=== PATIENT | female | born 1950 | race Caucasian/White ===

== ENCOUNTER 2017-11-16 18:21 | Inpatient (IN) | payer OTHER, MEDICARE ==
[~2017-11-16] VITALS: Ht 167.6 cm; Wt 90.7 kg
--- NOTE | 2017-11-16 20:52 | ED GENERAL ADULT ---
See Addendum History of Present Illness General Chief Complaint: Lower Extremity Problems Stated Complaint: CANT FEEL LT LEG FROM KNEE DOWN Source: patient Exam Limitations: no limitations Allergies Coded Allergies: codeine (NAUSEA/VOMITING 11/16/17) Reconcile Medications Alprazolam 0.5 MG TABLET 1 TAB PO TID ANXIETY (Reported) Alprazolam 0.5 MG TABLET 2 TAB PO QHS ANXIETY (Reported) Ascorbic Acid/Collagen Hydr (Collagen Plus Vit C Capsule) (Unknown Strength) CAPSULE (Unknown Dose) PO DAILY SUPPLEMENT (Reported) Calcium (Elemental-Fr Calcarb) (Calcium) (Unknown Strength) TABLET (Unknown Dose) PO DAILY SUPPLEMENT (Reported) Furosemide 20 MG TABLET 1 TAB PO DAILY DIURETIC (Reported) Gabapentin 300 MG CAPSULE 1 CAP PO TID MOOD/NERVE (Reported) Linaclotide (Linzess) 72 MCG CAPSULE 1 CAP PO DAILY IBS (Reported) Magnesium Oxide (Magnesium) (Unknown Strength) CAPSULE (Unknown Dose) PO DAILY SUPPLEMENT (Reported) Multiple Vitamin (Multivitamins) 1 EACH TABLET 1 TAB PO DAILY SUPPLEMENT ( Reported) Nortriptyline HCl 75 MG CAPSULE 3 CAP PO QPM SLEEP/ANXIETY (Reported) Simvastatin (Simvastatin*) 20 MG TABLET 1 TAB PO QPM CHOLESTEROL (Reported) Topiramate 100 MG TABLET 1 TAB PO QPM SLEEP/ANXIETY (Reported) Triage Note: PT TO ED FOR C/C NUMBNESS AND WEAKNESS TO L LOWER LEG ONLY BELOW KNEE X 1 WEEK. PT ALSO REPORTS HEADACHE X 2 WEEKS BUT THINKS IT'S RELATED TO A COLD. PT'S L LEG WEAKER WITH SLIGHTLY LESS MOVEMENT IN THE TOES. EXTREMITIES COLD BILATERALLY. DENIES PAIN. Triage Nurses Notes Reviewed? yes Onset: Gradual Duration: week(s): (2), constant, continues in ED Timing: single episode today Injury Environment: home Severity: moderate, severe Severity Numbers: 6 No Modifying Factors: none LMP (ages 10-50): unknown : No Patient currently breastfeeds: No HPI: 67-year-old female past medical history of obesity, hyperlipidemia, pituitary adenoma, anxiety and IBS present for evaluation of left lower extremity weakness and numbness along with headache. Patient states that symptoms started about 2 weeks ago after mother . The pain is located in the front of her head and described as pressure that is intermittent and sharp. She denies any head trauma. The weakness also started 2 weeks ago and has been persistent. She states it has been difficult for her to ambulate. She states that earlier today she was sitting on the toilet attempting to get up and because of the weakness in her left lower extremity she felt her knees and was unable to get up so her brought her to the emergency department. She denies any chest pain shortness of breath dizziness lightheadedness changes in vision or vomiting. She does not take blood thinners. She adamantly denies head trauma or alcohol use. No drug use. She does report subjective fevers over the past 2 weeks as well. She's been taking Advil for her symptoms without much improvement. No other weakness or numbness. No back pain. (Austin Barrera) Vital Signs & Intake/Output Vital Signs & Intake/Output Vital Signs Date Time Temp Pulse Resp B/P B/P Pulse O2 O2 Flow FiO2 Mean Ox Delivery Rate 11/16 2200 98.8 108 22 139/69 97 Room Air 11/16 1828 96.5 109 15 144/92 98 Room Air Room Air (Omari LISA,David Lopez) Past History Travel History Traveled to [place] past 21 day No Medical History Any Pertinent Medical History? see below for history Cardiovascular: hyperlipidemia, FLUID RETENTION Gastrointestinal: IBS-C Psychiatric: anxiety Blood Disorders: NONE Cancer(s): UTERINE CA Surgical History Surgical History: PITUITARY ADENOMA RESECTION Psychosocial History What is your primary language Turkish Tobacco Use: Quit >30 days ago ETOH Use: denies use Illicit Drug Use: denies illicit drug use Family History Hx Contributory? No (Austin Barrera) Review of Systems Review of Systems Constitutional: Reports: no symptoms. EENTM: Reports: no symptoms. Respiratory: Reports: no symptoms. Cardiovascular: Reports: no symptoms. GI: Reports: no symptoms. Genitourinary: Reports: no symptoms. Musculoskeletal: Reports: no symptoms. Skin: Reports: no symptoms. Neurological/Psychological: Reports: see HPI, headache, numbness, tingling. Hematologic/Endocrine: Reports: no symptoms. Immunologic/Allergic: Reports: no symptoms. All Other Systems: Reviewed and Negative (Austin Barrera) Physical Exam Physical Exam General Appearance: well developed/nourished, no apparent distress, alert, awake , obese Head: atraumatic, normal appearance, NO GAMBLE SIGNS OR RACCOON EYES. nO SIGNS OF TRAUMA. nO HEMATOMAS LACERATIONS OR ABRASIONS Eyes: Bilateral: normal appearance, PERRL, EOMI. Ears, Nose, Throat: normal pharynx, normal ENT inspection, hearing grossly normal Neck: normal inspection, supple, full range of motion, no midline tenderness Respiratory: normal breath sounds, chest non-tender, no respiratory distress, lungs clear Cardiovascular: regular rate/rhythm, normal peripheral pulses Peripheral Pulses: 2+ radial (R), 2+ radial (L) Gastrointestinal: soft, non-tender Back: normal inspection, normal range of motion, no vertebral tenderness Extremities: normal inspection, STRENGTH IN THE LEFT LOWER EXTREMITY IS 4 OUT OF 5 COMPARED TO 5 OUT OF 5 IN OTHER EXTREMITIES. sHARP DULL DIFFERENTIATION IS INTACT IN THE LEFT LOWER EXTREMITY. sOFT TOUCH SENSATION IS ABSENT IN THE FOOT/ DISTAL TOES Neurologic/Psych: no motor/sensory deficits, awake, alert, oriented x 3, abnormal gait, UNSTEADY GAIT. lEFT LOWER EXTREMITY WEAK. sHE IS ABLE TO STAND STRAIGHT AND NOT MOVE BUT SOON PATIENT ATTEMPTS TO AMBULATE SHE BECOMES UNSTEADY Skin: intact, normal color, warm/dry Lymphatic: no anterior cervical fabrice Core Measures ACS in differential dx? No CVA/TIA Diagnosis: No Sepsis Present: No Sepsis Focused Exam Completed? No (Shaji RAMIREZ,Austin) Progress Differential Diagnoses I considered the following diagnoses in my evaluation of the patient: [CVA, TIA, diabetic neuropathy, intracranial hemorrhage, intracranial mass, electrolyte abnormality, sciatica, peripheral vascular disease] Plan of Care: Orders Procedure Date/time Status LACTIC ACID 11/16 2352 Active Patient Data 11/16 2319 Active Admit to inpatient 11/16 2305 Active Add-on Test (ER Only) 11/16 2144 Active TYPE & SCREEN (NOT X-MATCH) 11/16 2141 Complete RAPID VIRAL INFLUENZA A 11/16 2051 Complete BLOOD CULTURE 11/16 2051 Active URINALYSIS 11/16 2051 Active TROPONIN LEVEL 11/16 2051 Complete PARTIAL THROMBOPLASTIN TIME 11/16 2051 Complete PROTHROMBIN TIME 11/16 2051 Complete MAGNESIUM 11/16 2051 Complete LACTIC ACID 11/16 2051 Complete COMPREHENSIVE METABOLIC PANEL 11/16 2051 Complete CBC WITHOUT DIFFERENTIAL 11/16 2051 Complete B-TYPE NATRIURETIC PEP (BNP) 11/16 2051 Complete EKG 11/16 2043 Active Laboratory Tests 11/16/172141: Anion Gap 21 H, Estimated GFR 56 L, BUN/Creatinine Ratio 14.0, Glucose 117 H, Lactic Acid 2.1, Calcium 10.3 H, Magnesium 1.8, Total Bilirubin 0.6, AST 48 H, ALT 89 H, Alkaline Phosphatase 127 H, Troponin I < 0.01, Iow-R-Knpcmufdqdb Pept 14.8, Total Protein 8.8 H, Albumin 5.2 H, Globulin 3.6, Albumin/Globulin Ratio 1.4, PT 11.6, INR 1.11, APTT 25, CBC w Diff NO MAN DIFF REQ, RBC 4.75, MCV 92.7, MCH 31.0, MCHC 33.4, RDW 13.3, MPV 7.9, Gran % 67.0, Lymphocytes % 25.8, Monocytes % 6.6, Eosinophils % 0.4, Basophils % 0.2, Absolute Granulocytes 7.6 H, Absolute Lymphocytes 2.9, Absolute Monocytes 0.8 H, Absolute Eosinophils 0.1 , Absolute Basophils 0 Microbiology 11/16 2300 NASOPHARYN: Influenza Virus A & B Rapid Smear - COMP 11/16 2244 BLOOD: Blood Culture - RECD 11/16 2212 BLOOD: Blood Culture - RECD Patient seen and evaluated. Her left lower extremity is weak compared to the right. Her sensation to soft touch is absent in the distal left lower extremity. She has an unsteady gait. Cerebellar testing is intact. Patient is moving all other extremities equally. Cranial nerve testing intact. CT scan shows a subacute/acute on chronic subdural hematoma. Patient denies head trauma. Spoke with neurosurgery and they do not feel like she needs to go the OR immediately and does not need to be transferred. Patient does have a history of a pituitary adenoma that was removed years ago. She had a MRI done at [facility] that according to the patient was normal back in July 2017. Patient states she does not wish to be transferred to [place] because of previous bad experiences there. They recommend an MRI as soon as possible in the morning. Blood work shows a mildly elevated white blood cell count of 11.4 mildly elevated LFTs. She is afebrile and appears clearly well. Patient will be admitted to the ICU for further evaluation and treatment. She'll require neurosurgical consult, MRI, monitoring of vital signs, neurochecks, serial labs. Case discussed with Dr. Salcido he agrees. Diagnostic Imaging: Viewed by Me: CT Scan. Discussed w/RAD: CT Scan. Radiology Impression: PATIENT: TREASURE VALDEZ PRESENT AGE: 67 PATIENT ACCOUNT NO: [id number] : 52 LOCATION: [facility] ORDERING PHYSICIAN: Austin RAMIREZ SERVICE DATE: 11/16/17 EXAM TYPE: CAT - CT HEAD WO IV CONTRAST EXAMINATION: CT HEAD WITHOUT CONTRAST CLINICAL INFORMATION: Headache. Left-sided weakness. COMPARISON: None. TECHNIQUE: Contiguous helical images of the brain were obtained without IV contrast. Multiplanar reconstructions were performed. DLP: 621 mGy-cm. FINDINGS: There is mixed attenuation extra-axial fluid anterior to the right frontal lobe. There is also high attenuation within the superior interhemispheric fissure on the right. The lateral, third, fourth ventricles are mildly prominent, though age-appropriate and concordant with the appearance of the sulci. There is no evidence for acute intraparenchymal hemorrhage or infarct. There is fullness to the sella with partial erosion of adjacent bone. There is no shift of midline structures. The paranasal sinuses and mastoid air cells are clear. There are no osseous lesions. IMPRESSION: Mixed attenuation extra-axial fluid overlying the right cerebrum product support sales representative of either a subacute or an acute upon chronic subdural hematoma. Pituitary mass with adjacent bony erosion. Recommendation is for correlation with brain MRI with contrast. The aforementioned was communicated to Dr. Girard at 2128 hours. DICTATED BY: José Miguel Escalera MD DATE/TIME DICTATED:11/16/172111 ACQUISITION MARKETING COORDINATOR:NIRAV DATE/TIME TRANSCRIBED:11/16/172111 CXR Impression: PATIENT: TREASURE VALDEZ PRESENT AGE: 67 PATIENT ACCOUNT NO: [id number] : 52 LOCATION: [facility] ORDERING PHYSICIAN: Austin RAMIREZ SERVICE DATE: 11/16/17 EXAM TYPE: RAD - XRY-PORTABLE CHEST XRAY EXAMINATION: CHEST 1 VIEW CLINICAL INFORMATION: Fever. COMPARISON: None. TECHNIQUE: An AP view of the chest is provided. FINDINGS: The cardiac silhouette is not enlarged. The mediastinal and hilar contours are unremarkable. There are neither pleural effusions nor pneumothoraces. There are no consolidations. The osseous structures are unremarkable. IMPRESSION: No evidence for acute disease. DICTATED BY: José Miguel Escalera MD DATE/TIME DICTATED:11/16/172205 ACQUISITION MARKETING COORDINATOR:NIRAV DATE/TIME TRANSCRIBED:11/16/172205 Initial ED EKG: SINUS TACH, LEFT ATRIAL ABNORMALITY, NONSPECIFIC INTERVENTRICULAR CONDUCTION DELAY, BORDERLINE r-WAVE ANTERIORLY (Austin Barrera) Differential Diagnoses I considered the following diagnoses in my evaluation of the patient: Comments: D/W DR. CALIX, UNKNOWN IF THIS IS BLOOD OR SOEMTHING ELSE. PT WILL NEED MRI WITH AND WITHOUT CONTRAST FOR FURTHER WORKUP. SURGICAL PA WILL CONSULT ON PT TONIGHT. Case was discussed with Dr. Garcia who feels that the patient should be transferred. At this point the patient is refusing transfer and we do not have an etiology of the CAT scan findings yet. Case was discussed with Dr. Cm who states to admit the patient and if needed he will accept the patient on his service tomorrow morning. (David Salcido MD) Departure Departure Disposition: STILL A PATIENT Condition: Stable Clinical Impression Primary Impression: Subdural hematoma Referrals: Panda Brooks MD (PCP/Family) Departure Forms: Customer Survey General Discharge Information (Austin Barrera) Admission Note Spoke With: Paul LISA,Nakiaeran Documentation of Exam: Documentation of any treatments & extenuating circumstances including Concerns Regarding Discharge (functional status, medication knowledge or non-compliance, living conditions, etc.) that warrant an admission rather than observation: [ Patient admitted to the ICU for frequent neurological checks. Patient will need an MRI with and without contrast in the morning. Neurosurgical consultation. Neurology consultation, pump tester consultation. Patient may require surgical intervention but we do not know the etiology as of this point.] PA/ACIDITY TESTER Co-Sign Statement Statement: ED Attending supervision documentation- [X] I saw and evaluated the patient. I have also reviewed all the pertinent lab results and diagnostic results. I agree with the findings and the plan of care as documented in the PA's/ACIDITY TESTER's documentation. [X] I have reviewed the ED Record and agree with the PA's/ACIDITY TESTER's documentation. [] Additions or exceptions (if any) to the PAs/ACIDITY TESTER's note and plan are summarized below: [See above note] (David Salcido MD) Critical Care Note Critical Care Note Critical Care Time: mins: (120 MIN) (David Salcido MD) [] Additions or exceptions (if any) to the PAs/ACIDITY TESTER's note and plan are summarized below: [See above note] (David Salcido MD) Critical Care Note Critical Care Note Critical Care Time: mins: (120 MIN) (David Salcido MD)
--- NOTE | 2017-11-16 21:30 | CT SCAN REPORT ---
EXAMINATION: CT HEAD WITHOUT CONTRAST CLINICAL INFORMATION: Headache. Left-sided weakness. COMPARISON: None. TECHNIQUE: Contiguous helical images of the brain were obtained without IV contrast. Multiplanar reconstructions were performed. DLP: 621 mGy-cm. FINDINGS: There is mixed attenuation extra-axial fluid anterior to the right frontal lobe. There is also high attenuation within the superior interhemispheric fissure on the right. The lateral, third, fourth ventricles are mildly prominent, though age-appropriate and concordant with the appearance of the sulci. There is no evidence for acute intraparenchymal hemorrhage or infarct. There is fullness to the sella with partial erosion of adjacent bone. There is no shift of midline structures. The paranasal sinuses and mastoid air cells are clear. There are no osseous lesions. IMPRESSION: Mixed attenuation extra-axial fluid overlying the right cerebrum professional healthcare representative of either a subacute or an acute upon chronic subdural hematoma. Pituitary mass with adjacent bony erosion. Recommendation is for correlation with brain MRI with contrast. The aforementioned was communicated to Dr. Girard at 2128 hours.
[2017-11-16 21:54] LABS: ABSOLUTE BASOPHIL COUNT 0 /CUMM (0.0-0.2); ABSOLUTE EOSINOPHIL COUNT 0.1 /CUMM (0.0-0.7); ABSOLUTE GRANULOCYTE CT 7.6 /CUMM (1.4-6.5); ABSOLUTE LYMPH COUNT 2.9 /CUMM (1.2-3.4); ABSOLUTE MONOCYTE COUNT 0.8 /CUMM (0.10-0.60); BASOPHIL % 0.2 % (0.0-2.0); EOSINOPHIL % 0.4 % (0-5); MEAN CORPUSCULAR HGB CONC 33.4 G/DL (33.0-37.0); MEAN CORPUSCULAR VOLUME 92.7 FL (81.0-99.0); MEAN PLATELET VOLUME 7.9 FL (7.4-10.4); PLATELET COUNT 401 /CUMM (130-400); RBC DISTRIBUTION WIDTH 13.3 % (11.5-14.5); RED BLOOD CELL CT 4.75 /CUMM (4.20-5.40); WHITE BLOOD CELL COUNT 11.4 /CUMM (4.8-10.8)
[2017-11-16] MEDS ORDERED: LINZESS72 MCG PO (22:01)
[2017-11-16] MEDS ORDERED: GABAPENTIN300 M2 PO (22:01)
[2017-11-16] MEDS ORDERED: NORTRIPTYLINE H75 M2 PO (22:02)
[2017-11-16] MEDS ORDERED: TOPIRAMATE100 M2 PO (22:02)
[2017-11-16 22:03] LABS: PT 11.6 SEC (9.4-12.5); PTT 25 SEC (25-37)
[2017-11-16] MEDS ORDERED: ALPRAZOLAM0.5 M4 PO ×2 (22:03→22:04)
[2017-11-16] MEDS ORDERED: FUROSEMIDE20 M1 PO (22:04)
[2017-11-16] MEDS ORDERED: SIMVASTATIN20 M2 PO (22:04)
[2017-11-16] MEDS ORDERED: MULTIVITAMINS1 EAC9 PO (22:05)
[2017-11-16] MEDS ORDERED: COLLAGEN PLUS1 EACH PO (22:06)
[2017-11-16] MEDS ORDERED: CALCIUM600 M3 PO (22:07)
[2017-11-16] MEDS ORDERED: MAGNESIUM400 M1 PO (22:07)
--- NOTE | 2017-11-16 22:10 | RADIOLOGY REPORT ---
EXAMINATION: CHEST 1 VIEW CLINICAL INFORMATION: Fever. COMPARISON: None. TECHNIQUE: An AP view of the chest is provided. FINDINGS: The cardiac silhouette is not enlarged. The mediastinal and hilar contours are unremarkable. There are neither pleural effusions nor pneumothoraces. There are no consolidations. The osseous structures are unremarkable. IMPRESSION: No evidence for acute disease.
--- NOTE | 2017-11-17 00:12 | Cons- Neurosurgical ---
General Information and HPI Consulting Request Date of Consult: 11/16/17 Requested By: Emergency room/hospitalist service Reason for Consult: Mixed attenuation extra-axial fluid overlying the right cerebrum solar sales representative of either a subacute or an acute upon chronic subdural hematoma on CAT scan taken today without trauma presenting with two-week history of headache and worsening left leg numbness and weakness Source of Information: patient Exam Limitations: no limitations History of Present Illness: Mrs. Jay is 67-year-old female with a past medical history of anxiety, IBS, hypercholesterolemia, and a past surgical history of transsphenoidal resection of nonmalignant pituitary adenoma, and multilevel anterior posterior lumbar fusion with cages in 1998, presents with a two-week history of headaches and worsening left lower extremity weakness and numbness. She states that she was sitting on the toilet this afternoon and when she stood up after urinating her left leg gave out on her and she fell to the ground. She denies hitting her head, loss of consciousness, blurred vision or dizziness prior to fall. Because of the frequent headaches and left leg numbness and weakness she came to the emergency room for evaluation. A head CT taken today demonstrates an unequivocal fluid collection that is either acute or acute on chronic. She denies headaches prior to 2 weeks ago or left leg numbness or weakness. She also states that she has been asymptomatic from her back surgery since 1998. Also of note she states that she was recently evaluated by a vascular surgeon associated with [facility], which she does not remember the name, who states that she has no vascular problems associated with her left or right lower extremities. She has no other complaints at this time Allergies/Medications Allergies: Coded Allergies: codeine (NAUSEA/VOMITING 11/16/17) Home Med List: Alprazolam 0.5 MG TABLET 1 TAB PO TID ANXIETY (Reported) Alprazolam 0.5 MG TABLET 2 TAB PO QHS ANXIETY (Reported) Ascorbic Acid/Collagen Hydr (Collagen Plus Vit C Capsule) (Unknown Strength) CAPSULE (Unknown Dose) PO DAILY SUPPLEMENT (Reported) Calcium (Elemental-Fr Calcarb) (Calcium) (Unknown Strength) TABLET (Unknown Dose) PO DAILY SUPPLEMENT (Reported) Furosemide 20 MG TABLET 1 TAB PO DAILY DIURETIC (Reported) Gabapentin 300 MG CAPSULE 1 CAP PO TID MOOD/NERVE (Reported) Linaclotide (Linzess) 72 MCG CAPSULE 1 CAP PO DAILY IBS (Reported) Magnesium Oxide (Magnesium) (Unknown Strength) CAPSULE (Unknown Dose) PO DAILY SUPPLEMENT (Reported) Multiple Vitamin (Multivitamins) 1 EACH TABLET 1 TAB PO DAILY SUPPLEMENT ( Reported) Nortriptyline HCl 75 MG CAPSULE 3 CAP PO QPM SLEEP/ANXIETY (Reported) Simvastatin (Simvastatin*) 20 MG TABLET 1 TAB PO QPM CHOLESTEROL (Reported) Topiramate 100 MG TABLET 1 TAB PO QPM SLEEP/ANXIETY (Reported) Past History Medical History Cardiovascular: hyperlipidemia, FLUID RETENTION Gastrointestinal: IBS-C Psychiatric: anxiety Blood Disorders: NONE Cancer(s): UTERINE CA Surgical History Pertinent Surgical History: PITUITARY ADENOMA RESECTION Psychosocial History ETOH Use: denies use Illicit Drug Use: denies illicit drug use Exam & Diagnostic Data Vital Signs and I&O Vital Signs Date Time Temp Pulse Resp B/P B/P Pulse O2 O2 Flow FiO2 Mean Ox Delivery Rate 11/16 2200 98.8 108 22 139/69 97 Room Air 11/16 1828 96.5 109 15 144/92 98 Room Air Room Air Intake & Output 11/17 0800 11/17 0000 11/16 1600 11/16 0800 11/16 0000 11/15 1600 Intake Total Output Total Balance Intake, Oral Patient 200 lb Weight Weight Reported by Patient Measurement Method Physical Exam General Appearance: alert, awake, anxious Head: atraumatic, normal appearance Eyes: Bilateral: PERRL. Respiratory: normal breath sounds, chest non-tender Cardiovascular: regular rate/rhythm Peripheral Pulses: 4+ popliteal (R), 4+ popliteal (L), 4+ tibialis posterior (R), 4+ tibialis posterior (L) Gastrointestinal: normal bowel sounds, soft, non-tender Back: no vertebral tenderness Extremities: no edema, calf tenderness Neurologic/Psych: motor/sensory deficits (left lower extremity) Last 24 Hours of Labs: Laboratory Tests 11/162 Chemistry Sodium (137 - 145 mmol/L) 145 Potassium (3.5 - 5.1 mmol/L) 3.9 Chloride (98 - 107 mmol/L) 102 Carbon Dioxide (22 - 30 mmol/L) 21 L Anion Gap (5 - 16) 21 H BUN (7 - 17 mg/dL) 14 Creatinine (0.5 - 1.0 mg/dL) 1.0 Estimated GFR (>60 ml/min) 56 L BUN/Creatinine Ratio (7 - 25 %) 14.0 Glucose (65 - 99 mg/dL) 117 H Lactic Acid (0.7 - 2.1 mmol/L) 2.1 Calcium (8.4 - 10.2 mg/dL) 10.3 H Magnesium (1.6 - 2.3 mg/dL) 1.8 Total Bilirubin (0.2 - 1.3 mg/dL) 0.6 AST (14 - 36 U/L) 48 H ALT (9 - 52 U/L) 89 H Alkaline Phosphatase (<127 U/L) 127 H Troponin I (< 0.11 ng/ml) < 0.01 Ooc-D-Ccjqhvsjqaa Pept (<125 pg/mL) 14.8 Total Protein (6.3 - 8.2 g/dL) 8.8 H Albumin (3.5 - 5.0 g/dL) 5.2 H Globulin (1.9 - 4.2 gm/dL) 3.6 Albumin/Globulin Ratio (1.1 - 2.2 %) 1.4 Coagulation PT (9.4 - 12.5 SEC) 11.6 INR (0.90 - 1.19) 1.11 APTT (25 - 37 SEC) 25 Hematology CBC w Diff NO MAN DIFF REQ WBC (4.8 - 10.8 /CUMM) 11.4 H RBC (4.20 - 5.40 /CUMM) 4.75 Hgb (12.0 - 16.0 G/DL) 14.7 Hct (37 - 47 %) 44.0 MCV (81.0 - 99.0 FL) 92.7 MCH (27.0 - 31.0 PG) 31.0 MCHC (33.0 - 37.0 G/DL) 33.4 RDW (11.5 - 14.5 %) 13.3 Plt Count (130 - 400 /CUMM) 401 H MPV (7.4 - 10.4 FL) 7.9 Gran % (42.2 - 75.2 %) 67.0 Lymphocytes % (20.5 - 51.1 %) 25.8 Monocytes % (1.7 - 9.3 %) 6.6 Eosinophils % (0 - 5 %) 0.4 Basophils % (0.0 - 2.0 %) 0.2 Absolute Granulocytes (1.4 - 6.5 /CUMM) 7.6 H Absolute Lymphocytes (1.2 - 3.4 /CUMM) 2.9 Absolute Monocytes (0.10 - 0.60 /CUMM) 0.8 H Absolute Eosinophils (0.0 - 0.7 /CUMM) 0.1 Absolute Basophils (0.0 - 0.2 /CUMM) 0 Imaging Results: SERVICE DATE: 11/16/17 EXAM TYPE: CAT - CT HEAD WO IV CONTRAST EXAMINATION: CT HEAD WITHOUT CONTRAST CLINICAL INFORMATION: Headache. Left-sided weakness. COMPARISON: None. TECHNIQUE: Contiguous helical images of the brain were obtained without IV contrast. Multiplanar reconstructions were performed. DLP: 621 mGy-cm. FINDINGS: There is mixed attenuation extra-axial fluid anterior to the right frontal lobe. There is also high attenuation within the superior interhemispheric fissure on the right. The lateral, third, fourth ventricles are mildly prominent, though age-appropriate and concordant with the appearance of the sulci. There is no evidence for acute intraparenchymal hemorrhage or infarct. There is fullness to the sella with partial erosion of adjacent bone. There is no shift of midline structures. The paranasal sinuses and mastoid air cells are clear. There are no osseous lesions. IMPRESSION: Mixed attenuation extra-axial fluid overlying the right cerebrum solar sales representative of either a subacute or an acute upon chronic subdural hematoma. Pituitary mass with adjacent bony erosion. Recommendation is for correlation with brain MRI with contrast. The aforementioned was communicated to Dr. Girard at 2128 hours. DICTATED BY: José Miguel Escalera MD DATE/TIME DICTATED:11/16/172111 ELECTRIC ORGAN INSPECTOR AND REPAIRER:NIRAV DATE/TIME TRANSCRIBED:11/16/172111 Assessment/Plan Assessment/Plan Pierre Gusman is 67-year-old female who presents with 2 week history of headaches, left lower extremity weakness and numbness whose leg gave way after getting up off the toilet this evening and falling to the ground without head trauma. CAT scan evaluation demonstrates a right sided fluid collection being read as acute or acute on chronic in nature requiring a brain MRI with IV contrast to further evaluate this fluid collection. My physical exam was conveyed to Dr. Bliss who has also reviewed the head CT and feels that there is no need for emergent neurosurgical intervention at this time. Plan Admit to medical service Recommend following up with brain MRI with contrast Every hour neuro checks Dr. Bliss will evaluate the patient in a.m. but remains available for immediate reconsult in the event that the patient's condition deteriorates. This plan was conveyed to the patient who is aware and is in agreement. Consult Acknowledgment - Thank you for your consult request.
--- NOTE | 2017-11-17 01:43 | Admission Certification ---
Admission Certification Certification Statement - As attending physician, I certify that at the time of - admission, based on clinical presentation, severity of - symptoms, need for further diagnostic testing and - therapeutic interventions, and risk of adverse outcomes - without in-hospital treatment, in my clinical assessment, - this patient requires an acute hospital stay for a minimum - of two nights or longer. I have also considered psychsocial - factors such as support system, advanced age, financial - issues, cognitive issues, and failed out-patient treatments, - past re-admission history, safety of patient, and lack of - compliance as applicable. Specific rationale supporting this admission is: Acute vs. subacute subdural hematoma, left leg weakness, requiring ICU level of care.
--- NOTE | 2017-11-17 02:01 | History & Physical ---
Harvinder LISA,[facility] 11/17/17 0200: General Information and HPI MD Statement: I have seen and personally examined TREASURE JAY and documented this H&P. The patient is a 67 year old F who presented with a patient stated chief complaint of [Left Leg Weakness]. Source of Information: patient Exam Limitations: no limitations History of Present Illness: Ms. Jay is a 67-year-old lady with past medical history significant for obesity, hyperlipidemia, anxiety, depression, IBS, uterine cancer status post hysterectomy(1977), and pituitary adenoma status post resection(July 2015) presents with headaches and left leg weakness x 2 weeks. Patient was in her usual state of health until almost 2 weeks ago when after the of her mother she started experiencing right temporal headache and followed couple of days later by numbness on the inner side of her foot which progressively traveled up to the knee, states she cannot feel the ground under her foot. Headaches are 10/10 in intensity, worse during the day but has been waking her up from sleep at night lately and associated with occasional flashing lights, nausea(without any vomiting) and low-grade fevers(MAXIMUM TEMPERATURE 101). She has been taking Advil for the headaches without much relief. She also took couple of doses of doxycycline for the fever(which her takes for Rosacea). Reports falling from the toilet today, when she was trying to get up from the toilet seat, her left knee gave away and she fell on the floor and had to crawl to her bedroom as she was not able to stand up. Denies any lightheadedness/dizziness, loss of consciousness or hitting her head. Weakness in her left leg is progressively getting worse and she has been holding on to things when walking. Also states that her right nostril feels blocked but has been an ongoing issue after she had the surgery for pituitary tumor. He denies any recent trauma, change in medications, recent illnesses, history of brain aneurysms, use of blood thinners or any hypertensive medications, previous headaches or any previous similar episodes. Allergies/Medications Allergies: Coded Allergies: codeine (NAUSEA/VOMITING 11/16/17) Home Med list Alprazolam 0.5 MG TABLET 1 TAB PO TID ANXIETY (Reported) Alprazolam 0.5 MG TABLET 2 TAB PO QHS ANXIETY (Reported) Ascorbic Acid/Collagen Hydr (Collagen Plus Vit C Capsule) (Unknown Strength) CAPSULE (Unknown Dose) PO DAILY SUPPLEMENT (Reported) Calcium (Elemental-Fr Calcarb) (Calcium) (Unknown Strength) TABLET (Unknown Dose) PO DAILY SUPPLEMENT (Reported) Furosemide 20 MG TABLET 1 TAB PO DAILY DIURETIC (Reported) Gabapentin 300 MG CAPSULE 1 CAP PO TID MOOD/NERVE (Reported) Linaclotide (Linzess) 72 MCG CAPSULE 1 CAP PO DAILY IBS (Reported) Magnesium Oxide (Magnesium) 400 MG CAPSULE 1 CAP PO DAILY supplement ( Reported) Multiple Vitamin (Multivitamins) 1 EACH TABLET 1 TAB PO DAILY SUPPLEMENT ( Reported) Nortriptyline HCl 75 MG CAPSULE 3 CAP PO QPM SLEEP/ANXIETY (Reported) Simvastatin (Simvastatin*) 20 MG TABLET 1 TAB PO QPM CHOLESTEROL (Reported) Topiramate 100 MG TABLET 1 TAB PO QPM SLEEP/ANXIETY (Reported) Past History Travel History Traveled to [place] past 21 day No Medical History Cardiovascular: hyperlipidemia, FLUID RETENTION Gastrointestinal: IBS-C Psychiatric: anxiety, depression Blood Disorders: NONE Cancer(s): UTERINE CA Surgical History Surgical History: hysterectomy ((1977)), PITUITARY ADENOMA RESECTION(Jul 2015), Bilateral Oophorectomy Past Family/Social History Family History Relations & Conditions if any MOTHER, . Psychosocial History Where do you live? Home Who Do You Live With? spouse Services at Home: None Smoking Status: Former Smoker (2 PPD x 40 yrs, quit 3 yrs ago) ETOH Use: denies use Illicit Drug Use: denies illicit drug use Functional Ability ADLs Independent: dressing, eating, toileting, bathing. Ambulation: independent IADLs Independent: shopping, housework, finances, food prep, telephone, transportation , medication admin. Review of Systems Review of Systems Constitutional: Reports: fever. EENTM: Reports: no symptoms. Cardiovascular: Reports: no symptoms. Respiratory: Reports: no symptoms. GI: Reports: nausea. Genitourinary: Reports: no symptoms. Musculoskeletal: Reports: no symptoms. Skin: Reports: no symptoms. Neurological/Psychological: Reports: headache, numbness, weakness. Hematologic/Endocrine: Reports: no symptoms. Immunologic/Allergic: Reports: no symptoms. All Other Systems: Reviewed and Negative Exam & Diagnostic Data Last 24 Hrs of Vital Signs/I&O Vital Signs Date Time Temp Pulse Resp B/P B/P Pulse O2 O2 Flow FiO2 Mean Ox Delivery Rate 11/17 0240 98.5 98 18 156/87 95 Room Air 11/16 2200 98.8 108 22 139/69 97 Room Air 11/16 1828 96.5 109 15 144/92 98 Room Air Room Air Intake & Output 11/17 0800 11/17 0000 11/16 1600 Intake Total Output Total Balance Intake, Oral Patient 200 lb Weight Weight Reported by Patient Measurement Method Physical Exam General Appearance Alert, Oriented X3, Cooperative, No Acute Distress Skin No Rashes, No Breakdown HEENT Atraumatic, PERRLA, EOMI, dry mucous membranes, Normal Visual Field testing Neck Supple, No JVD, No thryomegaly Cardiovascular Regular Rate, Normal S1, Normal S2, No Murmurs Lungs Clear to Auscultation, Normal Air Movement Abdomen Normal Bowel Sounds, Soft, No Tenderness Neurological Normal Speech, Normal Tone, Cranial Nerves 3-12 NL, Strenght 5/5 in bilateral upper and RLE, 3/5 in LLE, sensation to light touch patchy on LLE upto the knee, crude touch seemed more intact,Patchy Proprioception on the left foot, Vibration sense absent on the left, normal ROM of all joints, Absent reflexes with negative Babinski, Cerebellar signs intact, Romberg +ve, gait was shuffling(patient seemed to drag her left foot) Extremities No Clubbing, No Cyanosis, No Edema, Pulses detectable with doppler, Bilateral hand and feet erythema, Feet Cold to touch Last 24 Hrs of Labs/Lizandro: Laboratory Tests 11/16/172141: Anion Gap 21 H, Estimated GFR 56 L, BUN/Creatinine Ratio 14.0, Glucose 117 H, Lactic Acid 2.1, Calcium 10.3 H, Magnesium 1.8, Total Bilirubin 0.6, AST 48 H, ALT 89 H, Alkaline Phosphatase 127 H, Troponin I < 0.01, Bxt-F-Uquqxbftvrv Pept 14.8, Total Protein 8.8 H, Albumin 5.2 H, Globulin 3.6, Albumin/Globulin Ratio 1.4, TSH 3.260, Free T4 1.08, Estradiol (E2) Level 29.0, Prolactin 6.5, Cortisol PM Sample 14.2 H, PT 11.6, INR 1.11, APTT 25, CBC w Diff NO MAN DIFF REQ, RBC 4.75, MCV 92.7, MCH 31.0, MCHC 33.4, RDW 13.3, MPV 7.9, Gran % 67.0, Lymphocytes % 25.8, Monocytes % 6.6, Eosinophils % 0.4, Basophils % 0.2, Absolute Granulocytes 7.6 H, Absolute Lymphocytes 2.9, Absolute Monocytes 0.8 H, Absolute Eosinophils 0.1, Absolute Basophils 0 Microbiology 11/17 0155 URINE ROUT: Urine Culture - ORD 11/16 2300 NASOPHARYN: Influenza Virus A & B Rapid Smear - COMP 11/16 2245 BLOOD: Blood Culture - RECD 11/16 2212 BLOOD: Blood Culture - RECD Diagnostic Data EKG Results NSR Heart rate 102 QTc 475 CXR Results IMPRESSION: No evidence for acute disease. Other Results CT HEAD WO IV CONTRAST IMPRESSION: Mixed attenuation extra-axial fluid overlying the right cerebrum personnel representative of either a subacute or an acute upon chronic subdural hematoma. Pituitary mass with adjacent bony erosion. Recommendation is for correlation with brain MRI with contrast. Assessment/Plan Assessment: Ms. Jay is a 67-year-old lady with past medical history significant for obesity, hyperlipidemia, anxiety, depression, IBS, uterine cancer status post hysterectomy(1977), and pituitary adenoma status post resection(July 2015) presents with headaches and left leg weakness x 2 weeks. A/P; 1. Headache and Left leg weakness; Ct scan of the Head shows evidence of either a subacute or an acute upon chronic subdural hematoma. Patient denies hitting her head after she fell in the toilet or any other recent head trauma. - Admit the patient to ICU - [facility] Q1H - Fall precautions - Neurosurgery was consulted who does not warrant any emergent surgical intervention. - Will obtain MRI in am. - NPO for anticipated surgery tomorrow. 2. Pituatry Adenoma s/p Resection; CT showing Pituitary mass with adjacent bony erosion which could be progression of the residual tumor mass?? Patient had an MRI done at [place] in Aug 2017 which showed showed stable postop appearance of sella with persistent enhancing T1 hyperintensity near left cavernous sinus. - Obtain records from [place]. - Patient is not on any Hormone Replacement Therapy after the Pituatry resection. - Will order TSh, Free T4, random cortisol, and Prolactin Levels. 3. AGMA; unclear Etiology - Patient has a lactic acid level of 2.1. - Obtain Utox. 4. Leukocytosis; Patient denies any recent infections but had low grade fevers at home and also took couple of doses of doxycycline. - CXR is negative for any acute processes. - Will Obtain UA and Urine Cx. - F/U Blood Cx. 5. Transaminitis; - Will Continue to Monitor - Obtain Hepatitis Panel. - F/U ASA, Acetaminophen level and alcohol Levels. DVT Prophylaxis; ALPS Patient is Full Code As Ranked By This Provider Problem List: 1. Subdural hematoma Core Measures/Misc (07/10) Acute Coronary Syndrome ACS Diagnosis: No Congestive Heart Failure Congestive Heart Failure Diagnosis No Cerebrovascular Accident CVA/TIA Diagnosis: No VTE (View Protocol) VTE Risk Factors Age>40 No Mechanical VTE Prophylaxis d/t N/A MechProphylax Ordered No VTE Pharm Prophylaxis d/t Medical Contraindication Sepsis (View protocol) Sepsis Present: No Danilo Merritt MD 11/17/17 0324: Resident Review Statement Resident Statement: examined this patient, discussed with manufacturing engineering intern, agreed with manufacturing engineering intern Other Findings: HPI: This is a 67-year-old female with past medical history significant for IBS constipation type, hyperlipidemia, uterine cancer, 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 Patient states the last 2 weeks she has experienced a numb sensation climbing from inner aspect of her left foot up to her knee. Concomitantly, she notes a headache above her right eye that is getting progressively worse. The headache is intermittent, has very mild relief to khik-ubq-qnpokvs pain meds. She describes it as a stabbing 10 out of 10 pain that is sometimes associated with flashing lights and nausea. The pain has woken her up from sleep several times. She endorses escalating pain regimen from 1 tab Q6 to 2 tab Q4 over the past two weeks. Additionally, she endorses intermittent fevers over the past two weeks with Tmax 101 about 4 days ago. She has been taking round the clock NSAID so isn't always able to tell if she is febrile. Given h/a, nausea, fever and malaise she suspected she had flu and used 's prescription of Doxycycline (for rosacea) 50mg intermittently to no avail. She takes Topamax and nortriptyline, for mental health/anxiety; no hx of migraines. Neither seem to be helping with her headaches. Notably, her mother 2 weeks ago and she has been under significant stress since then. Notably, today she was using the bathroom and when she tried to get up her left lower extremity "gave out" and she fell. Subsequently, she was unable to get up and crawled her way back to her bedroom and called her for help. She denies hitting her head, loss of consciousness, loss of bladder or bowel function. She states that she's been having difficulty ambulating gradually over the last 2 weeks. She describes her inability as a mixture unable to feel the floor and the leg "giving out." She feels like both the headaches and the weakness is worsening over the past two weeks. ROS pertinent for + nausea, headache, progressive numbness and weakness of LLE, decreased appetite. PHYSICAL EXAM: Her physical exam is pertinent for no visual field deficits, extraocular movements intact, no nystagmus noted. Her cardiovascular and pulmonary exam were unremarkable. Abdomen nontender, negative Morris's. Her lower extremities have a lacy reticular rash present. Her feet are erythematous bilaterally with shiny skin over her toes. They both feel cold to touch. She has decreased sensation in left lower extremity up to her ankle. Fine sensation is more diminished and coarse. Note that loss of sensation seemed rather patchy in her left lower extremity. Negative Babinski. Normal reflexes were elicited in upper or lower extremity. Upon standing she is very unsteady. Positive Romberg. Her gait is shuffling. She seems to put all her weight in her right lower extremity and almost has to drag/pull her left foot. Strength is 3 out of 5 in her left lower extremity and 5 out of 5 in her right lower extremity ASSESSMENT: This is a 67-year-old female with past medical history of IBS, constipation type, hyperlipidemia, uterine cancer, nonsecreting pituitary macroadenoma status post transsphenoidal resection in 2015, anxiety, who comes in for chief complaint of headache, left lower extremity weakness and fall. A CT scan shows "extra-axial fluid overlying the right cerebrum... subacute VS acute upon chronic subdural hematoma." Additionally, there is a pituitary mass with adjacent bony erosion noted on scan. Upon evaluating her records from [place] she had an MRI on 08/01/2017 which showed stable postop appearance of sella with persistent enhancing T1 hyperintensity near left cavernous sinus. There was no intracranial hemorrhage noted in scan. Given concern for new intracranial hemorrhage with significant neurologic deficits in her left lower extremity, patient is admitted to the intensive care unit for further monitoring and workup. Note that she initially refused transfer to [facility] in ED. PLAN: Subdural hematoma: There is question whether this extra-axial collection is acute versus acute on chronic. However, given that imaging on August 2017 shows no fluid collection there is concern that this is a little more acute in nature. Patient did have a fall today but she denies any trauma to her head, but it still remains a possibility. However, it would not explain the CIFUENTES and LE deficits for the past two weeks. Neurosurgery was consulted and it was felt that no emergent neurosurgical intervention is necessary. * MRI brain with contrast in a.m. * Every one hour neuro check * Follow-up neurosurgical consult in a.m. * Fall precautions * Nothing by mouth in anticipation of possible procedure * Alps for prophylaxis * Avoiding NSAIDs * Type and screen Pituitary Macroadenoma: Pt has known hx and is s/p resection in 2014. Follow[address] Dr. Sultana at [facility]. Will need to compare MRI in AM to previous study to eval re -growth of tumor. * Obtain records * Will need to con't follow up with her neurosurgical team * Checking FSH, LH, TSH, Prolactin, sex hormones, random cortisol Leukocytosis: Patient has white count 11.4, her only complaint is headache. She denies any viral URI symptoms. Unsure of source at this time. She is afebrile but has been taking NSAIDs consistently and doxycycline intermittently. Note concomitant thrombocytosis of 401. * Blood cultures 2 * Urine culture * Monitor Cbc * Watch off antibiotics Anionic gap metabolic acidosis: Patient has anion gap of 21 with BUN of 21. Note that she is on topiramate and it is associated with decrease in bicarb and metabolic acidosis, but it is more commonly Non-anion gap in nature. * Utox * Lactic acid * Will not suddenly withdraw medication but con't monitor effects * Check Phos and Mag Transaminitis: Patient has AST 48 and ALT 89 with alkaline phosphatase 127. She denies any right upper quadrant pain. Morris's sign negative. She denies any consumption of alcohol. * Monitor LFTs in a.m. * Nortryptaline can increase LFT, con't monitor * Consider RUQ US in AM FULLCODE NPO ALPS FOR PPX Paul LISA, [facility] 11/17/17 0501: Attending MD Review Statement Attending Statement Attending MD Statement: examined this patient, discuss w/resident/PA/MEDICAL CARE EVALUATION SPECIALIST, agreed w/resident/PA/MEDICAL CARE EVALUATION SPECIALIST, reviewed images, amended to note Attending Assessment/Plan: 67 yo F with h/o pituitary macroadenoma s/p transphenoidal resection (2014, follows Dr. Sultana, last MRI Jul 2017), HLD, IBS- constipation predominant, posterior lumbar fusion with cage (1998), anxiety, is here for evaluation of 2- week h/o headache and progressively worsening left lower extremity numbness/ weakness with resultant fall today. Patient lost her mother about 2 weeks back, since then has had intermittent right sided fronto-temporal headache, associated with nausea and some photophobia. She also c/o fatigue and poor appetite. She has had to wake up from her sleep due to headache. No h/o migraine. She has been using NSAIDs with some relief. She has chronic anxiety and stress disorder. She reports a fever of 101 few days back and started taking doxycycline assuming she was getting the flu. In the meanwhile, she has noticed numbness and loss of sensation over her left foot now extending up to her left knee, with difficulty ambulating. She is not able to feel the ground with her left foot. She ambulates while holding on to things at home for fear of falling. Today, while getting off the toilet her left leg gave out and she fell but denies head trauma or LOC. She could not get up and crawled her way to the bedroom. Vitals stable. Neuro: Cranial nerves intact, PERRL, no visual field deficits, no nystagmus, power 3-4/5 LLE, otherwise 5/5 in other extremities, sensation is reduced from knee down to feet - however patchy cannot identify a specific dermatome, position and vibration sense reduced to absent left foot. Reflexes equivocal. Plantars downgoing. Finger-nose test no past pointing. Gait is unsteady, tends to drag her left foot, positive romberg's. LE: both legs have lace-like reticular skin pattern, both feet are cold to touch , smooth/shiny skin with loss of hair. Peripheral pulses were dopplerable. Labs: WBC 11.4, AG 21, bicarb 21, glucose 117, calcium 10.3, AST 48, ALT 89, alk phos 127, lactic acid 2.1, trop neg. CT head: mixed attenuation extra-axial fluid overlying right cerebrum subacute or acute on chronic subdural hematoma. Fullness to sella with partial erosion of adjacent bone. CXR: neg. EKG: sinus tachycardia. Assessment and plan: 1. Right acute vs subacute subdural hematoma 2. Right fronto-temporal headache in the setting of SDH 3. Rule out migraine or cluster headache 4. Left lower extremity sensori-motor deficits 5. h/o pituitary macroadenoma s/p resection 6. Transaminitis of unclear etiology - Admit to ICU - Vitals Q1 hour - Neurochecks Q1 hourly - Fall precautions - NPO for now - Avoid NSAIDs or narcotics - Pain management with tylenol or tramadol - Neurosurgery was consulted by ER, no urgent intervention at this point - Resident was able to access [facility] records MRI (Jul 2017) showed stable postop appearance of sella with persistent enhancing T1 hyperintensity near left cavernous sinus. Please obtain official report from [facility]. - MRI brain with contrast in AM to assess fluid collection - If MRI brain is suggestive of SDH, she will need transfer to higher level of care. - Check urine tox screen, B12, TSH, free T4 and other pit hormones. - Gentle hydration and recheck LFTs. Check hepatitis panel, tylenol, alcohol and salicylate levels. - Consider RUQ ultrasound in AM - Hold simvastatin and lasix - Resume home meds - nortriptyline, topiramate, gabapentin, linzess and alprazolam (with holding parameters) DVT ppx Alps. Full code. I have explained to the patient in detail and expressed need for transfer to higher level of care as [facility] does not have a neursurgical ICU. Patient lives nearby and has a sick family member hence she does not wish to be transferred right now. Patient wishes to wait for MRI in the morning and is agreeable for transfer if need be at that point. TTS > 45 mins
[2017-11-17 05:43] LABS: PT 12.1 SEC (9.4-12.5); PTT 28 SEC (25-37)
[2017-11-17 05:56] LABS: ABSOLUTE BASOPHIL COUNT 0 /CUMM (0.0-0.2); ABSOLUTE EOSINOPHIL COUNT 0 /CUMM (0.0-0.7); ABSOLUTE GRANULOCYTE CT 6.7 /CUMM (1.4-6.5); ABSOLUTE LYMPH COUNT 2.8 /CUMM (1.2-3.4); ABSOLUTE MONOCYTE COUNT 0.9 /CUMM (0.10-0.60); BASOPHIL % 0.3 % (0.0-2.0); EOSINOPHIL % 0.3 % (0-5); GRANULOCYTE % 64.2 % (42.2-75.2); HEMATOCRIT 40.3 % (37-47); MEAN CORPUSCULAR HGB 30.8 PG (27.0-31.0); MEAN CORPUSCULAR HGB CONC 33.1 G/DL (33.0-37.0); MEAN CORPUSCULAR VOLUME 93.1 FL (81.0-99.0); PLATELET COUNT 361 /CUMM (130-400); RBC DISTRIBUTION WIDTH 13.5 % (11.5-14.5); RED BLOOD CELL CT 4.33 /CUMM (4.20-5.40); WHITE BLOOD CELL COUNT 10.4 /CUMM (4.8-10.8)
--- NOTE | 2017-11-17 07:40 | Cons- CRCU ---
General Information and HPI Allergies/Medications Allergies: Coded Allergies: codeine (NAUSEA/VOMITING 11/16/17) Home Med List: Alprazolam 0.5 MG TABLET 1 TAB PO TID ANXIETY (Reported) Alprazolam 0.5 MG TABLET 2 TAB PO QHS ANXIETY (Reported) Ascorbic Acid/Collagen Hydr (Collagen Plus Vit C Capsule) (Unknown Strength) CAPSULE (Unknown Dose) PO DAILY SUPPLEMENT (Reported) Calcium (Elemental-Fr Calcarb) (Calcium) (Unknown Strength) TABLET (Unknown Dose) PO DAILY SUPPLEMENT (Reported) Furosemide 20 MG TABLET 1 TAB PO DAILY DIURETIC (Reported) Gabapentin 300 MG CAPSULE 1 CAP PO TID MOOD/NERVE (Reported) Linaclotide (Linzess) 72 MCG CAPSULE 1 CAP PO DAILY IBS (Reported) Magnesium Oxide (Magnesium) 400 MG CAPSULE 1 CAP PO DAILY supplement ( Reported) Multiple Vitamin (Multivitamins) 1 EACH TABLET 1 TAB PO DAILY SUPPLEMENT ( Reported) Nortriptyline HCl 75 MG CAPSULE 3 CAP PO QPM SLEEP/ANXIETY (Reported) Simvastatin (Simvastatin*) 20 MG TABLET 1 TAB PO QPM CHOLESTEROL (Reported) Topiramate 100 MG TABLET 1 TAB PO QPM SLEEP/ANXIETY (Reported) Past History Travel History Traveled to [place] past 21 day No Medical History Cardiovascular: hyperlipidemia, FLUID RETENTION Gastrointestinal: IBS-C Psychiatric: anxiety, depression Blood Disorders: NONE Cancer(s): UTERINE CA Surgical History Surgical History: hysterectomy ((1977)), PITUITARY ADENOMA RESECTION(Jul 2015) Bilateral Oophorectomy Family History Relations & Conditions If Any: MOTHER, . Psychosocial History Where Do You Live? Home Who Do You Live With? spouse Services at Home: None Smoking Status: Former Smoker (2 PPD x 40 yrs, quit 3 yrs ago) ETOH Use: denies use Illicit Drug Use: denies illicit drug use Functional Ability ADLs Independent: dressing, eating, toileting, bathing. Ambulation: independent IADLs Independent: shopping, housework, finances, food prep, telephone, transportation , medication admin. Assessment/Plan Consult Acknowledgment - Thank you for your consult request.
--- NOTE | 2017-11-17 07:51 | PN- Neurosurgical ---
Surgical Brief Attending Note Brief Attending Note: 67yo yo women with h/o pituitary macroadenoma subtotally resected 2015 by Piyush Sultana at [place] and lumbar fusion by Dr. Potter presents with 2 wk h/o CIFUENTES, left LE weakness and numbness with fall at home yest presents with CT evidence of a mostly isodense but heterogeneous right frontal extraaxial collection and hyperintense signal along right interhemispheric fissure with sulcal effacement of right hemisphere with no h/o trauma, CHI, or anticoagulation by her report. Pt is AF with findings of mild proximal LLE weakness, sensory loss otherwise nonfocal neuro exam. Differential diagnosis includes subacute SDH with small areas of more recent hemorrhage, extraaxial mass, inflammatory or infectious process. MRI with and without gayathri should be obtained to better evaluate the abnormality. Pending the result, would consider possible transfer to [place] for better ability to monitor neurologic status, intervene surgically if necessary if her clinical exam progresses, and appropriate postop monitoring capability. Will discuss with medical team.
--- NOTE | 2017-11-17 08:57 | MRI REPORT ---
EXAMINATION: MR BRAIN WITHOUT AND WITH CONTRAST CLINICAL INFORMATION: Rule out hematoma. Also evaluate pituitary mass. Left extremity weakness. COMPARISON: Head CT 11/12/20132017. TECHNIQUE: Multiplanar, multisequence imaging of the brain was performed before and after the intravenous administration of 10 mL of Gadavist. FINDINGS: There is stable size a 10 mm thick heterogeneous signal intensity subdural hematoma along the right frontal convexity which extends to the right aspect of the falx (where it measures up to 11 mm) and spans the AP dimension of the falx with some additional subdural hematoma seen along the right tentorial reflection. There is a tiny amount of subdural hemorrhage along the right parieto-occipital and temporal convexities. There is minimal mass effect related to the subdural hematoma but no regional mass effect or midline shift. There is no intraventricular hemorrhage. There is no acute infarct or parenchymal mass lesion. There are mild foci of T2 hyperintensity in the bilateral cerebral white matter, which are nonspecific but likely reflect underlying small vessel disease. There is no unexpected intracranial enhancement. The sella appears mildly enlarged and smoothly remodeled. No enhancing pituitary lesion is seen. The infundibulum is deviated to the right and the pituitary gland is seen along the right aspect of the sella. The optic chiasm is free of compression. The cavernous sinuses demonstrate normal enhancement. The osseous margins of the sella are not well defined. The major arterial flow voids are preserved at the skull base. The extracranial structures are within normal limits. There are small amount of fluid in the left petrous apex. IMPRESSION: 1. Redemonstration of subdural hematoma along the right frontal convexity, right aspect of the falx, and right tentorial leaflet measuring up to 11 mm in maximal thickness. A tiny amount of subdural hemorrhage is also present along the right parieto-occipital and temporal convexities. No significant mass effect related to these subdural hematomas. No interval change compared to the head CT performed one day prior. 2. No acute infarct, parenchymal hemorrhage, or evidence of hydrocephalus. 3. No evidence of pituitary mass. The sella is smoothly remodeled and expanded without evidence of an enhancing lesion.
[2017-11-17 10:12] VITALS: BP 147/79
--- NOTE | 2017-11-17 10:54 | Patient Discharge Instructions ---
Discharge Instructions General Discharge Information You were seen/treated for: Subdural Hematoma Special Instructions: Please follow up with your PCP and neurosurgeon within one week of discharge. Diet Continue normal diet: Yes Activity Full Activity/No Limits: Yes Acute Coronary Syndrome Inclusion Criteria At DC or during hospital stay patient has or had the following: ACS DIAGNOSIS No Discharge Core Measures Meds if any: Prescribed or Continued at Discharge Meds if any: NOT Prescribed or Continued at Discharge Congestive Heart Failure Inclusion Criteria At DC or during hospital stay patient has or had the following: CHF DIAGNOSIS No Discharge Core Measures Meds if any: Prescribed or Continued at Discharge Meds if any: NOT Prescribed or Continued at Discharge Cerebrovascular accident Inclusion Criteria At DC or during hospital stay patient has or had the following: CVA/TIA Diagnosis No Discharge Core Measures Meds if any: Prescribed or Continued at Discharge Meds if any: NOT Prescribed or Continued at Discharge Venous thromboembolism Inclusion Criteria VTE Diagnosis No VTE Type NONE VTE Confirmed by (Test) NONE Discharge Core Measures - Per Current guidelines, there needs to be overlap - treatment for the first 5 days of Warfarin therapy. - If discharged on Warfarin prior to 5 days of - overlap therapy, the patient will need to be - assessed for post discharge needs including - *Post discharge parental anticoagulation - *Warfarin and/or parental anticoagulation education - *Follow up date to check INR post discharge At least 5 days overlap therapy as Inpatient No Meds if any: Prescribed or Continued at Discharge Note: Overlap Therapy is Warfarin and Anticoagulant Meds if any: NOT Prescribed or Continued at Discharge
--- NOTE | 2017-11-17 11:15 | PN- Resident CRCU ---
Subjective HPI/CRCU Issues: Subdural Hematoma and hemorrhage 24 Hour Events: No acute events since admission last night. Though patient continues to complain of severe right temporal headaches, 10/10 in severity, non radiating. Objective Vital Signs & I&O Last 8 Hrs of Vitals and I&O: . Exam General Appearance: alert, awake, mild distress Head: atraumatic, normal appearance Respiratory: normal breath sounds, chest non-tender, lungs clear Cardiovascular: regular rate/rhythm Gastrointestinal: soft, non-tender Extremities: no edema Cranial Nerves: normal hearing, normal speech, PERRL Skin: normal color Skin Temp/Moisture Exam: Warm/Dry Sepsis Skin Exam (color): Normal for Ethnicity Other Physical Findings: Decreased sensation on left plantar aspect. Current Medications: Current Medications Sig/[place] Start time Last Medication Dose Route Stop Time Status Admin Acetaminophen 0 .STK-MED ONE 11/17 0512 DC IV Acetaminophen 650 MG Q6P PRN 11/16 2345 DCD PO Acetaminophen 1,000 MG Q6P PRN 11/16 2345 DCD 11/17 IV 0511 Acetaminophen 0 .STK-MED ONE 11/16 2218 DC IV Acetaminophen 1,000 MG ONCE ONE 11/16 2200 DC 11/16 N/A 1 UNIT IV 11/16 2214 2218 Alprazolam 0.5 MG TID 11/17 1000 DCD 11/17 PO 11/24 0959 0927 Alprazolam 0 .STK-MED ONE 11/17 0930 DC PO Gabapentin 300 MG TID 11/17 1000 DCD 11/17 PO 0927 Ibuprofen 600 MG Q6P PRN 11/16 2345 DC PO Ketorolac 0 .STK-MED ONE 11/17 0249 DC Tromethamine .ROUTE Linaclotide 145 MCG DAILY 11/17 1000 DCD PO Linaclotide 145 MCG DAILY 11/17 0230 CAN PO Melatonin 5 MG AT BEDTIME 11/17 0257 DCD 11/17 PO 0321 Morphine Sulfate 0 .STK-MED ONE 11/17 0850 DC .ROUTE Morphine Sulfate 4 MG ONCE ONE 11/17 0845 DC 11/17 IV 11/17 0846 0852 Morphine Sulfate 1 MG ONCE ONE 11/17 0300 DC 11/17 IV 11/17 0301 0255 Morphine Sulfate 0 .STK-MED ONE 11/17 0254 DC .ROUTE Nortriptyline HCl 225 MG QPM 11/17 2200 DCD PO Ondansetron HCl 0 .STK-MED ONE 11/17 0901 DC .ROUTE Ondansetron HCl 0 .STK-MED ONE 11/17 0521 DC .ROUTE Ondansetron HCl 4 MG Q6P PRN 11/16 2345 DCD 11/17 IV 0531 Sodium Chloride 250 ML BOLUS ONE 11/16 2245 DC 11/17 IV 11/16 2344 0255 Topiramate 100 MG QPM 11/17 2200 DCD PO Impression/Plan Impression/Problem List Impression: 67-year-old female with past medical history of IBS, constipation type, hyperlipidemia, uterine cancer, 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 Assessment and Plan: Subdural hematoma: * MRI brain with contrast showed redemonstration of subdural hematoma along the right frontal convexity, right aspect of the falx, and right tentorial leaflet measuring up to 11 mm in maximal thickness. * continue neurochecks q1hr. * neurosurgery recommends transfer to [facility] for further intervention. * Fall precautions * Will transfer the patient. Leukocytosis: Patient had an elevated white count on admission which has resolved today. Was likely reactive. * Blood cultures 2 show no growth so far. * Watch off antibiotics FULLCODE NPO ALPS FOR PPX Problem List: 1. Subdural hematoma Pain Ratin Tomorrow's Labs & Rationales: none Plan DVT/Prophylaxis: mechanical
--- NOTE | 2017-11-17 11:18 | Discharge Summary ---
Visit Information Visit Dates Admission Date: 11/16/17 Discharge Date: 11/17/17 Hospital Course Course Attending Physician: Isaac Mcpherson MD Primary Care Physician: Todd LISA,Panda Mojica Consulting Request: Consulting Specialty: Neurosurgery Consulting Physician: Dr. Bliss [facility] Course: Ms. Jay is a 67-year-old lady with a past medical history significant for obesity, hyperlipidemia, anxiety, depression, IBS, uterine cancer status post hysterectomy(1977), and pituitary adenoma status post resection(July 2015). She presented with a 2 week history of headaches and left leg weakness. She was in her usual state of health until 2 weeks ago when after the of her mother she started experiencing right temporal headache and followed a few days later by numbness on the inner side of her foot which progressively traveled up to her knee. She stated that she could not feel the ground under her foot. Her headaches were 10/10 in intensity, worse during the day but has also been waking her up from sleep at night and associated with occasional flashing lights, nausea (without any vomiting) and low-grade fevers (MAXIMUM TEMPERATURE 101F). She had been taking Advil for the headaches without much relief. She also took some doses of doxycycline for the fever (which her takes for Rosacea). She reported falling from the toilet on the day of presentation. When trying to get up from the toilet seat, her left knee gave away and she fell on the floor and had to crawl to her bedroom as she was not able to stand up. She denied any lightheadedness/dizziness, loss of consciousness or hitting her head. She states that both her headache and the weakness in her left leg are progressively getting worse and she has been holding on to things when walking. In addition, she complained of right sided nasal congestion which has been an ongoing issue after she had the surgery for her pituitary tumor. She denies any recent trauma, change in medications, recent illnesses, history of brain aneurysms, use of blood thinners or any hypertensive medications, previous headaches or any previous similar episodes. Vital signs: Temperature 96.5 F, pulse 109 bpm, respiratory rate 15 per minute, blood pressure 144/92 mmhg, pulse oximetry 98% on room air. PHYSICAL EXAM AT PRESENTATION: Her physical exam is pertinent for no visual field deficits, extraocular movements intact, no nystagmus noted. Her cardiovascular and pulmonary exam were unremarkable. Abdomen nontender, negative Morris's. Her lower extremities showed a lacy reticular rash. Her feet were erythematous bilaterally with shiny skin over her toes and felt cold to touch. She had decreased sensation in left lower extremity up to her ankle. Fine sensation is more diminished and coarse. Loss of sensation seemed rather patchy in her left lower extremity. Negative Babinski sign. Normal reflexes were elicited in upper or lower extremity. Positive Romberg. Her gait is shuffling. She seems to put all her weight in her right lower extremity and almost has to drag/pull her left foot. Strength is 3 out of 5 in her left lower extremity and 5 out of 5 in her right lower extremity. Her labs showed: WBC 11.4, anion gap 21, bicarb 21, glucose 117, calcium 10.3, AST 48, ALT 89, alk phos 127, lactic acid 2.1, troponins were negative. CT head revealed mixed attenuation extra-axial fluid overlying right cerebrum subacute or acute on chronic subdural hematoma. Fullness to sella with partial erosion of adjacent bone. A chest x-ray showed no evidence of acute disease. She was admitted and monitored closely with neuro checks. Her headache pain was controlled with Tylenol and IV morphine when necessary. Neurosurgical consultation was obtained and the patient was evaluated by neurosurgeon Dr. Bliss. an MRI scan was done to evaluate possible interval change in size of her subdural hematoma. The MRI scan 9 hours after presentation showed the subdural hematoma along the right frontal convexity, right aspect of the falx, and right tentorial leaflet measuring up to 11 mm in maximal thickness with a tiny amount of subdural hemorrhage present along the right parieto-occipital and temporal convexities. There was no significant mass effect related to these subdural hematomas. And no interval change compared to the head CT performed at presentation. Her Her clinical condition remained unchanged. Her MRI brain was reviewed by neurosurgeon Gaby Collins and it was decided that the patient be transferred to [facility] for better ability to monitor neurologic status, intervene surgically if necessary if her clinical exam progresses, and appropriate postop monitoring capability. She was subsequently transferred for further management. Allergies: Coded Allergies: codeine (NAUSEA/VOMITING 11/16/17) Disposition Summary Disposition Principal Diagnosis: 1. Right acute vs subacute subdural hematoma 2. Right fronto-temporal headache in the setting of subdural hematoma 3. Rule out migraine or cluster headache 4. Left lower extremity sensori-motor deficits Additional Diagnosis: 5. History of pituitary macroadenoma status post resection 6. Transaminitis of unclear etiology Discharge Disposition: other general hospital Discharge Instructions General Discharge Information Code Status: Full Code Patient's Diet: Regular diet Patient's Activity: Self limited activity Follow-Up Instructions/Appts: Please follow up with your PCP and neurosurgeon within one week of discharge. Medications at Discharge Discharge Medications: Continue taking these medications: Gabapentin (Gabapentin) 300 MG CAPSULE 1 Capsule ORAL THREE TIMES DAILY Linaclotide (Linzess) 72 MCG CAPSULE 1 Capsule ORAL DAILY Qty = 30 Nortriptyline HCl (Nortriptyline HCl) 75 MG CAPSULE 3 Capsule ORAL Every night Qty = 90 Topiramate (Topiramate) 100 MG TABLET 1 Tablet ORAL Every night Qty = 30 Alprazolam (Alprazolam) 0.5 MG TABLET 1 Tablet ORAL THREE TIMES DAILY Qty = 150 Alprazolam (Alprazolam) 0.5 MG TABLET 2 Tablet ORAL TAKE AT BEDTIME Simvastatin (Simvastatin*) 20 MG TABLET 1 Tablet ORAL Every night Qty = 90 Furosemide (Furosemide) 20 MG TABLET 1 Tablet ORAL DAILY Qty = 90 Multiple Vitamin (Multivitamins) 1 EACH TABLET 1 Tablet ORAL DAILY Ascorbic Acid/Collagen Hydr (Collagen Plus Vit C Capsule) (Unknown Strength) CAPSULE Unknown Dose ORAL DAILY Calcium (Elemental-Fr Calcarb) (Calcium) (Unknown Strength) TABLET Unknown Dose ORAL DAILY Magnesium Oxide (Magnesium) 400 MG CAPSULE 1 Capsule ORAL DAILY Copies To: Ray Mcpherson MD, MD,[place] Unknown Dose ORAL DAILY Magnesium Oxide (Magnesium) 400 MG CAPSULE 1 Capsule ORAL DAILY Copies To: Ray Mcpherson MD, MD, Judith L.
== END 2017-11-17 10:33 | disposition short-term general hospital (02) | DRG 65 ==
LOC: ERH 18:21 → ERHI 23:05
PROVIDERS: Physician Assistant Medical; Student in an Organized Health Care Education/Training Program
DX: I62.01 Nontraumatic acute subdural hemorrhage (principal); G81.94 Hemiplegia, unspecified affecting left nondominant side; E87.2 Acidosis; E66.9 Obesity, unspecified; E78.5 Hyperlipidemia, unspecified; F41.9 Anxiety disorder, unspecified; F32.9 Major depressive disorder, single episode, unspecified; K58.9 Irritable bowel syndrome, unspecified; R74.0 Nonspecific elevation of levels of transaminase and lactic acid dehydrogenase [LDH]; E78.00 Pure hypercholesterolemia, unspecified; Z87.891 Personal history of nicotine dependence
CPT/HCPCS: 70552; ERO; 36415; 70553; 71045; 80307; 82436; 82670; 87040; 87086; 87804; 87804-59; 93005; 93010; 96374; 99291; A9579; J0131; J1885; J2405; J7040